=== PATIENT | female | born 1985 | race Two or more races ===

== ENCOUNTER 2019-08-30 20:41 | Emergency (ER) | payer MEDICAID, OTHER ==
[~2019-08-30] VITALS: Ht 147.3 cm; Wt 65.8 kg
[2019-08-30 21:30] VITALS: BP 113/82
[2019-08-30] MEDS ORDERED: HYDROcodone-ACET 5/325MG TAB PO ONE (21:30)
[2019-08-30] MEDS ORDERED: ONDANSETRON ODT 4 MG TAB PO ONE (21:30)
[2019-08-30 21:56] LABS: Basophils # (auto) 0.1 uL; Basophils % (auto) 0.6 % (0.0-2.0); Eosinophils # (auto) 0.1 uL; Eosinophils % (auto) 0.9 % (0.0-7.0); Hematocrit 42.4 % (36.0-46.0); Hemoglobin 14.5 g/dL (12.2-16.2); Lymphocytes # (auto) 1.3 uL; Lymphocytes % (auto) 13.7 % (10.0-50.0); Mean Corpuscular Hemoglobin 30.4 pg (28.0-32.0); Mean Corpuscular Hgb Conc. 34.2 g/dL (32.0-36.0); Mean Corpuscular Volume 88.9 fL (80.0-100.0); Monocytes # (auto) 0.5 uL; Monocytes % (auto) 5.7 % (0.0-12.0); Neutrophils # (auto) 7.5 uL; Neutrophils % (auto) 79.1 % (37.0-80.0); Platelet Count (auto) 303 10^3/uL (140-450); Red Blood Cells 4.77 10^6/uL (4.0-5.20); Red Cell Distribution Width 13.4 % (11.8-14.3); White Blood Cell 9.5 10^3/uL (4.4-10.8)
[2019-08-30 22:09] LABS: INR 0.98 (0.9-1.15); Partial Thromboplastin Time 25.1 sec (23.64-32.05)
[2019-08-30 22:13] LABS: Albumin 3.7 g/dL (3.4-5.0); BUN/Creatinine Ratio 20.3; Calcium 8.9 mg/dL (8.5-10.1); Potassium 3.9 mmol/L (3.5-5.1)
[2019-08-30 22:16] LABS: Bilirubin, Total 0.3 mg/dL (0.2-1.0); Total Protein 7.8 g/dL (6.4-8.2)
[2019-08-30] MEDS ORDERED: cefTRIAXone W LIDOCAINE 1 GM IM IM ONE (22:45)
[2019-08-30] MEDS ORDERED: cefTRIAXone SOD 1,000 MG VL IM ONE (23:15)
[2019-08-30] MEDS ORDERED: LIDOCAINE 2% (LOCAL ANESTH.) PF 5ml SDV IJ ONE (23:15)
== END 2019-08-30 23:48 | disposition home or self-care (01) ==
LOC: ER 20:47
DX: S61.432A Puncture wound without foreign body of left hand, initial encounter (principal); W26.0XXA Contact with knife, initial encounter; Y93.89 Activity, other specified; Y99.8 Other external cause status; Y92.89 Other specified places as the place of occurrence of the external cause
CPT/HCPCS: 36415; 73130; 80053; 85025; 85610; 85730; 96372; 99284; J0696; J2001; Q0162